=== PATIENT | female | born 1990 | race Caucasian/White ===

== ENCOUNTER → 2018-05-14 | Outpatient (CLI) | payer OTHER ==
[2018-05-14 15:07] LABS: HCT 37.3 % (34.0-46.0); HGB 12.3 gm/dL (11.4-16.0); MCHC 32.9 g/dL (31.0-37.0); MCV 85.1 fL (80.0-100.0); Platelet Count 270 k/uL (150-450); RBC 4.38 m/uL (3.80-5.40); RDW 13.6 % (11.5-15.5); WBC 13.8 k/uL (3.8-10.6)
[2018-05-14 18:54] LABS: T3, Uptake 26 % (23-37)
[2018-05-14 18:59] LABS: T4, Free (Free Thyroxine) 1.2 ng/dL (0.80-1.80)
[2018-05-14 21:47] LABS: HIV 1 AB Non-Reactive (Non-Reactive); HIV AB P24 Non-Reactive (Non-Reactive); HIV P24 AG Non-Reactive (Non-Reactive)
== END | disposition home or self-care (01) ==
LOC: LABWHC1 14:32
PROVIDERS: ATTEND Obstetrics & Gynecology
DX: Z34.81 Encounter for supervision of other normal pregnancy, first trimester (principal); Z3A.00 Weeks of gestation of pregnancy not specified
CPT/HCPCS: 36415; 82565; 82947; 84439; 84443; 84479; 85027; 86592; 86762; 86850; 86900; 86901; 87340; 87390

== ENCOUNTER 2018-05-21 01:01 | Emergency (ER) | payer OTHER ==
[2018-05-21 01:05] VITALS: TEMP 97.8
--- NOTE | 2018-05-21 01:36 | ED ---
Female Urogenital HPI - General Chief complaint: Vaginal Bleeding Stated complaint: bleeding,8 wks preg Time Seen by Provider: 05/21/18 01:11 Source: patient, RN notes reviewed, old records reviewed Mode of arrival: ambulatory Limitations: no limitations - History of Present Illness Initial comments: Patient is a 28-year-old, female. She was reportedly 8 weeks . She presents emergency department today complaining of vaginal bleeding starting at 11:30 this evening. She reports that she is went through 1. Pad. Patient states that she lives of right-sided abdominal cramping. She has not had any ultrasound for this yet. Her E[employer]IC MOTOR[employer] is Dr. Mobley. - Related Data Home Medications Medication Instructions Recorded Confirmed ALPRAZolam [Xanax] 0.5 mg PO TID PRN 08/18/15 08/18/15 Venlafaxine HCl [Effexor XR] 75 mg PO DAILY 08/18/15 08/18/15 Previous Rx's Medication Instructions Recorded Ibuprofen [Motrin] 600 mg PO Q6HR PRN #20 tab 08/18/15 Orphenadrine [Norflex] 100 mg PO Q12H #10 tablet.er 08/18/15 Allergies Allergy/AdvReac Type Severity Reaction Status Date / Time Iodinated Contrast- Oral and Allergy Anaphylaxis Verified 08/18/15 11:16 IV Dye [Iodinated Contrast Media - IV Dye] Review of Systems ROS Statement: Those systems with pertinent positive or pertinent negative responses have been documented in the HPI. ROS Other: All systems not noted in ROS Statement are negative. Past Medical History Past Medical History: Fibromyalgia, Skin Disorder Additional Past Medical History / Comment(s): MENINGITIS INFANT, BOILS ON SKIN, CHEST PAIN AND SOB WITH ANXIETY, INTERMITTENT ABD PAIN, VARICOSE VEINS History of Any Multi-Drug Resistant Organisms: None Reported Additional Past Surgical History / Comment(s): EGD & COLONOSCOPY Past Anesthesia/Blood Transfusion Reactions: No Reported Reaction Past Psychological History: Anxiety, Depression, PTSD Smoking Status: Current every day smoker Past Alcohol Use History: Occasional Past Drug Use History: None Reported General Exam - General Exam Comments Initial Comments: 28-year-old female. Alert and oriented. Patient appears in no distress. Limitations: no limitations General appearance: alert, in no apparent distress Head exam: Present: atraumatic, normocephalic, normal inspection Eye exam: Present: normal appearance, PERRL, EOMI. Absent: scleral icterus, conjunctival injection, periorbital swelling ENT exam: Present: normal exam, mucous membranes moist Neck exam: Present: normal inspection. Absent: tenderness, meningismus, lymphadenopathy Respiratory exam: Present: normal lung sounds bilaterally. Absent: respiratory distress, wheezes, rales, rhonchi, stridor Cardiovascular Exam: Present: regular rate, normal rhythm, normal heart sounds. Absent: systolic murmur, diastolic murmur, rubs, gallop, clicks GI/Abdominal exam: Present: soft, normal bowel sounds. Absent: distended, tenderness, guarding, rebound, rigid External exam: Present: normal external exam Speculum exam: Present: normal speculum exam By manual exam: Present: cervical motion tenderness, adnexal tenderness (Right adnexal tenderness). Absent: normal by manual exam Extremities exam: Present: normal inspection, full ROM, normal capillary refill. Absent: tenderness, pedal edema, joint swelling, calf tenderness Back exam: Present: normal inspection Neurological exam: Present: alert, oriented X3, CN II-XII intact Psychiatric exam: Present: normal affect, normal mood Skin exam: Present: warm, dry, intact, normal color. Absent: rash Course Vital Signs 05/21/18 05/21/18 01:03 02:42 Temperature 97.8 F Pulse Rate 70 59 L Respiratory 16 18 Rate Blood Pressure 121/68 105/59 O2 Sat by Pulse 98 100 Oximetry Medical Decision Making - Medical Decision Making Patient is a 28-year-old female, currently 8 weeks . She presents emergency arm today with concerns for vaginal bleeding and pelvic pain and cramping. She has no fever. She did have some right-sided adnexal tenderness on exam. Pelvic exam showed a small amount of scant bleeding. No clots. She is Rh-. Patient will receive RhoGAM. Vaginal swab did test positive for Trichomonas. Patient was informed of these results and discussed that I treat her for chlamydia E Trichomonas. Patient reports that she hurt he is aware that she has Trichomonas. Patient is wanting to wait to be treated by her [employer]OR[employer] when she is 13 weeks . I did discuss that the Trichomonas infection could be the onset of her pain. . She refused Flagyl and the antibiotic treatment. Patient reports that she wants to be treated at 13 weeks when her can both be treated at the same time. I discussed the Patient follow-up with Dr. Mobley. Patient agrees to treatment plan will comply. Discharged after RhoGAM. - Lab Data Result diagrams: 05/21/18 01:40 05/21/18 01:40 Lab Results 05/21/18 05/21/18 05/21/18 Range/Units 01:40 01:40 01:40 WBC 10.6 (3.8-10.6) k/uL RBC 4.49 (3.80-5.40) m/uL Hgb 12.6 (11.4-16.0) gm/dL Hct 37.9 (34.0-46.0) % MCV 84.3 (80.0-100.0) fL MCH 28.1 (25.0-35.0) pg MCHC 33.3 (31.0-37.0) g/dL RDW 13.7 (11.5-15.5) % Plt Count 252 (150-450) k/uL Neutrophils % 72 % Lymphocytes % 21 % Monocytes % 4 % Eosinophils % 2 % Basophils % 0 % Neutrophils # 7.6 (1.3-7.7) k/uL Lymphocytes # 2.2 (1.0-4.8) k/uL Monocytes # 0.4 (0-1.0) k/uL Eosinophils # 0.2 (0-0.7) k/uL Basophils # 0.0 (0-0.2) k/uL PT (9.0-12.0) sec INR (<1.2) APTT (22.0-30.0) sec Sodium 137 (137-145) mmol/L Potassium 4.0 (3.5-5.1) mmol/L Chloride 107 (98-107) mmol/L Carbon Dioxide 23 (22-30) mmol/L Anion Gap 7 mmol/L BUN 8 (7-17) mg/dL Creatinine 0.50 L (0.52-1.04) mg/dL Est GFR (CKD-EPI)AfAm >90 (>60 ml/min/1.73 sqM) Est GFR (CKD-EPI)NonAf >90 (>60 ml/min/1.73 sqM) Glucose 92 (74-99) mg/dL Calcium 9.0 (8.4-10.2) mg/dL Total Bilirubin 0.2 (0.2-1.3) mg/dL AST 22 (14-36) U/L ALT 40 (9-52) U/L Alkaline Phosphatase 53 (38-126) U/L Total Protein 6.5 (6.3-8.2) g/dL Albumin 3.5 (3.5-5.0) g/dL HCG, Quant 09554.5 mIU/mL Urine Color Urine Appearance (Clear) Urine pH (5.0-8.0) Ur Specific L[place] (1.001-1.035) Urine Protein (Negative) Urine Glucose (UA) (Negative) Urine Ketones (Negative) Urine Blood (Negative) Urine Nitrite (Negative) Urine Bilirubin (Negative) Urine Urobilinogen (<2.0) mg/dL Ur Leukocyte Esterase (Negative) Urine RBC (0-5) /hpf Urine WBC (0-5) /hpf Ur Squamous Epith Cells (0-4) /hpf Urine HCG, Qual (Not Detectd) Trichomonas Ag (Rapid) (Negative) Blood Type A Negative Blood Type Recheck No Antibody Screen NEGATIVE 05/21/18 05/21/18 05/21/18 Range/Units 01:40 01:40 01:40 WBC (3.8-10.6) k/uL RBC (3.80-5.40) m/uL Hgb (11.4-16.0) gm/dL Hct (34.0-46.0) % MCV (80.0-100.0) fL MCH (25.0-35.0) pg MCHC (31.0-37.0) g/dL RDW (11.5-15.5) % Plt Count (150-450) k/uL Neutrophils % % Lymphocytes % % Monocytes % % Eosinophils % % Basophils % % Neutrophils # (1.3-7.7) k/uL Lymphocytes # (1.0-4.8) k/uL Monocytes # (0-1.0) k/uL Eosinophils # (0-0.7) k/uL Basophils # (0-0.2) k/uL PT 10.7 (9.0-12.0) sec INR 1.0 (<1.2) APTT 25.3 (22.0-30.0) sec Sodium (137-145) mmol/L Potassium (3.5-5.1) mmol/L Chloride (98-107) mmol/L Carbon Dioxide (22-30) mmol/L Anion Gap mmol/L BUN (7-17) mg/dL Creatinine (0.52-1.04) mg/dL Est GFR (CKD-EPI)AfAm (>60 ml/min/1.73 sqM) Est GFR (CKD-EPI)NonAf (>60 ml/min/1.73 sqM) Glucose (74-99) mg/dL Calcium (8.4-10.2) mg/dL Total Bilirubin (0.2-1.3) mg/dL AST (14-36) U/L ALT (9-52) U/L Alkaline Phosphatase (38-126) U/L Total Protein (6.3-8.2) g/dL Albumin (3.5-5.0) g/dL HCG, Quant mIU/mL Urine Color Light Yellow Urine Appearance Clear (Clear) Urine pH 6.5 (5.0-8.0) Ur Specific [place] 1.003 (1.001-1.035) Urine Protein Negative (Negative) Urine Glucose (UA) Negative (Negative) Urine Ketones Negative (Negative) Urine Blood Small H (Negative) Urine Nitrite Negative (Negative) Urine Bilirubin Negative (Negative) Urine Urobilinogen <2.0 (<2.0) mg/dL Ur Leukocyte Esterase Negative (Negative) Urine RBC 1 (0-5) /hpf Urine WBC 1 (0-5) /hpf Ur Squamous Epith Cells 3 (0-4) /hpf Urine HCG, Qual Detected (Not Detectd) Trichomonas Ag (Rapid) (Negative) Blood Type Blood Type Recheck Antibody Screen 05/21/18 Range/Units 02:10 WBC (3.8-10.6) k/uL RBC (3.80-5.40) m/uL Hgb (11.4-16.0) gm/dL Hct (34.0-46.0) % MCV (80.0-100.0) fL MCH (25.0-35.0) pg MCHC (31.0-37.0) g/dL RDW (11.5-15.5) % Plt Count (150-450) k/uL Neutrophils % % Lymphocytes % % Monocytes % % Eosinophils % % Basophils % % Neutrophils # (1.3-7.7) k/uL Lymphocytes # (1.0-4.8) k/uL Monocytes # (0-1.0) k/uL Eosinophils # (0-0.7) k/uL Basophils # (0-0.2) k/uL PT (9.0-12.0) sec INR (<1.2) APTT (22.0-30.0) sec Sodium (137-145) mmol/L Potassium (3.5-5.1) mmol/L Chloride (98-107) mmol/L Carbon Dioxide (22-30) mmol/L Anion Gap mmol/L BUN (7-17) mg/dL Creatinine (0.52-1.04) mg/dL Est GFR (CKD-EPI)AfAm (>60 ml/min/1.73 sqM) Est GFR (CKD-EPI)NonAf (>60 ml/min/1.73 sqM) Glucose (74-99) mg/dL Calcium (8.4-10.2) mg/dL Total Bilirubin (0.2-1.3) mg/dL AST (14-36) U/L ALT (9-52) U/L Alkaline Phosphatase (38-126) U/L Total Protein (6.3-8.2) g/dL Albumin (3.5-5.0) g/dL HCG, Quant mIU/mL Urine Color Urine Appearance (Clear) Urine pH (5.0-8.0) Ur Specific [place] (1.001-1.035) Urine Protein (Negative) Urine Glucose (UA) (Negative) Urine Ketones (Negative) Urine Blood (Negative) Urine Nitrite (Negative) Urine Bilirubin (Negative) Urine Urobilinogen (<2.0) mg/dL Ur Leukocyte Esterase (Negative) Urine RBC (0-5) /hpf Urine WBC (0-5) /hpf Ur Squamous Epith Cells (0-4) /hpf Urine HCG, Qual (Not Detectd) Trichomonas Ag (Rapid) Positive H (Negative) Blood Type Blood Type Recheck Antibody Screen - Radiology Data Radiology results: report reviewed Ultrasound shows viable IUP measuring 8 weeks and 0 days. Heart rate of 1 71 bpm. kidney process is noted. Disposition Clinical Impression: Trichomonas infection, 8 weeks gestation of , Threatened miscarriage Disposition: HOME SELF-CARE Condition: Good Instructions: Trichomoniasis (ED), Threatened Miscarriage (ED) Additional Instructions: Patient advised of prompt follow-up with primary care physician and [employer]. Return to the emergency department if any alarming signs or symptoms occur. Is patient prescribed a controlled substance at d/c from ED?: No Referrals: Gladis Vivas MD [Primary Care Provider] - 1-2 days Royer Anders DO [Doctor of Osteopathic Medicine] - 1-2 days Time of Disposition: 03:39
[2018-05-21 01:59] LABS: Basophils % (A) 0 %; Eosinophils # (A) 0.2 k/uL (0-0.7); Eosinophils % (A) 2 %; HCT 37.9 % (34.0-46.0); HGB 12.6 gm/dL (11.4-16.0); Lymphocytes # (A) 2.2 k/uL (1.0-4.8); Lymphocytes % (A) 21 %; MCH 28.1 pg (25.0-35.0); MCHC 33.3 g/dL (31.0-37.0); MCV 84.3 fL (80.0-100.0); Mean Platelet Volume 6.8; Monocytes # (A) 0.4 k/uL (0-1.0); Monocytes % (A) 4 %; Neutrophils # (A) 7.6 k/uL (1.3-7.7); Neutrophils % (A) 72 %; Platelet Count 252 k/uL (150-450); RBC 4.49 m/uL (3.80-5.40); RDW 13.7 % (11.5-15.5); WBC 10.6 k/uL (3.8-10.6)
[2018-05-21 02:01] LABS: Appearance,Urine Clear (Clear); Bilirubin,Urine Negative (Negative); Blood,Urine Small (Negative); Color,Urine Light Yellow; Glucose,Urine (UA) Negative (Negative); Ketones,Urine Negative (Negative); Leukocyte Esterase,Urine Negative (Negative); Nitrite,Urine Negative (Negative); PH, Urine 6.5 (5.0-8.0); Protein,Urine Negative (Negative); RBC,Urine 1 /hpf (0-5); Specific Gravity,Urine 1.003 (1.001-1.035); Squamous Epithelial Cell,Urine 3 /hpf (0-4); Urobilinogen,Urine <2.0 mg/dL (<2.0)
[2018-05-21 02:09] LABS: ALT 40 U/L (9-52); AST 22 U/L (14-36); Albumin 3.5 g/dL (3.5-5.0); Alkaline Phosphatase 53 U/L (38-126); Anion Gap 7 mmol/L; Blood Urea Nitrogen 8 mg/dL (7-17); Carbon Dioxide 23 mmol/L (22-30); Chloride 107 mmol/L (98-107); Glucose 92 mg/dL (74-99); Sodium 137 mmol/L (137-145); Total Bilirubin 0.2 mg/dL (0.2-1.3); Total Protein 6.5 g/dL (6.3-8.2)
[2018-05-21 02:11] LABS: Partial Thromboplastin Time 25.3 sec (22.0-30.0); Prothrombin Time 10.7 sec (9.0-12.0)
--- NOTE | 2018-05-21 02:21 | US ---
EXAMINATION TYPE: Transabdominal DATE OF EXAM: 09/01/17 COMPARISON: NONE CLINICAL HISTORY: pain. Bleeding EXAM PERFORMED: Transabdominal (TA) EXAM MEASUREMENTS: GESTATIONAL AGE / DATING Physician Established: (8 weeks/2 days) EDC: 12/29/2018 Dates by LMP: (8 weeks/2 days) EDC: 12/29/2018 Dates by First Scan: No previous this is first scan Dates by Current Scan for: (8 weeks/0 days) EDC: 12/31/2018 MATERNAL ANATOMY Uterus: 9.3 x 5.0 x 5.8 cm Right Ovary: 3.4 x 2.4 x 2.0 cm Post CDS / Adnexa: wnl Presence of free fluid: no Presence of corpus luteal cyst: yes Presence of subchorionic bleed: no GESTATION / SURVEY CRL: 1.67cm (8 weeks/0 days) Yolk Sac (normal less than 6mm): 2 Heart Rate: 171 bpm Rhythm: Normal IUP: Viable IUP Beta HcG (if available): Not available at this time Viable IUP 8w 0d hr 171 bpm IMPRESSION: No complicating process seen.
[2018-05-21] MEDS ORDERED: Rhogam IMMUNE GLOBULIN 1,500 UNIT/1 ML IM ONE (02:23)
[2018-05-21 02:43] VITALS: BP 105/59; PULSE 59; RESP 18
[2018-05-21 02:58] LABS: HCG,Quantitative Serum 59443.5 mIU/mL
[2018-05-21] MEDS ORDERED: cefTRIAXone 250 MG VIAL IM STA (03:11)
[2018-05-21] MEDS ORDERED: metroNIDAZOLE 500 MG TAB PO STA (03:11)
[2018-05-21] MEDS ORDERED: AZITHROMYCIN 500 MG TAB PO STA (03:11)
[2018-05-24 11:01] LABS: Chlamydia trachomatis rRNA Not detected (Not detected); Neisseria gonorrhoeae rRNA Not detected (Not detected)
== END 2018-05-21 04:00 | disposition home or self-care (01) ==
LOC: EC 01:01
DX: O20.0 Threatened abortion (principal); O98.311 Other infections with a predominantly sexual mode of transmission complicating pregnancy, first trimester; O99.341 Other mental disorders complicating pregnancy, first trimester; F32.9 Major depressive disorder, single episode, unspecified; F41.9 Anxiety disorder, unspecified; F43.10 Post-traumatic stress disorder, unspecified; O99.331 Smoking (tobacco) complicating pregnancy, first trimester; F17.200 Nicotine dependence, unspecified, uncomplicated; Z3A.08 8 weeks gestation of pregnancy; Z53.8 Procedure and treatment not carried out for other reasons; Z79.899 Other long term (current) drug therapy; Z91.041 Radiographic dye allergy status
CPT/HCPCS: 36415; 86900; 86901; 80053; 87591; 87491; 85025; 85610; 85730; 86850; 81001; 81025; 84702; 87808; 87070; 87205; 76801; 99284; 96372; J2791

== ENCOUNTER → 2018-05-27 | Outpatient (CLI) | payer OTHER ==
--- NOTE | 2018-05-27 13:34 | US ---
EXAMINATION TYPE: Transabdominal DATE OF EXAM: 09/01/17 COMPARISON: 05/18 CLINICAL HISTORY: Z36 Confirm dates. EXAM PERFORMED: Transvaginal (TV) and Transabdominal (TA) EXAM MEASUREMENTS: GESTATIONAL AGE / DATING Physician Established: not established Dates by LMP: (9 weeks/1 days) EDC: 12/29/2018 Dates by First Scan: (8 weeks/6 days) EDC: 12/31/2018 Dates by Current Scan for: (8 weeks/3 days) EDC: 01/03/2019 MATERNAL ANATOMY Uterus: 8.6 x 4.6 x 5.6 Right Ovary: 3.0 x 2.1 x 2.8 cm Left Ovary: 2.2x2.4x1.5 Post CDS / Adnexa: wnl Presence of free fluid: no Presence of corpus luteal cyst: rt cyst 1.9 x 2.0 x 1.9 cm Presence of subchorionic bleed: no GESTATION / SURVEY CRL: 2.2 (8 weeks/3 days) MSD: 3.3 (8 weeks/0 days) Yolk Sac (normal less than 6mm): 0.5 Heart Rate: 142 bpm Rhythm: Normal IUP: Viable IUP Date of LMP: 03/24/2018 Beta HcG (if available): Not available at this time IMPRESSION: Single viable intrauterine as noted above.
== END | disposition home or self-care (01) ==
LOC: RADUSWWP 12:29
PROVIDERS: ATTEND Obstetrics & Gynecology
DX: Z36.89 Encounter for other specified antenatal screening (principal)
CPT/HCPCS: 76801; 76817; 84702

== ENCOUNTER 2018-07-27 03:02 | Emergency (ER) | payer OTHER ==
[2018-07-27] MEDS ORDERED: SODIUM CHLORIDE 0.9% 1,000 ML IV ONE (03:36)
[2018-07-27] MEDS ORDERED: ACETAMINOPHEN TAB 325 MG TAB PO STA (03:36)
--- NOTE | 2018-07-27 03:54 | ED ---
Abdominal Pain HPI - General Chief Complaint: Abdominal Pain Stated Complaint: 17 Wks Preg Back,Abd Pain Time Seen by Provider: 07/27/18 03:35 Source: patient Mode of arrival: ambulatory Limitations: no limitations - History of Present Illness Initial Comments: Sheela is a female currently 17 weeks gestation single intrauterine who presents to the emergency department today for evaluation of low back pain radiating to her pelvis. Patient reports that the discomfort began yesterday she describes it as a bilateral cramping that radiates from her back around into her pelvis. Pain is not associated with any nausea, vomiting, appetite change, change in bowel or bladder habits any hematuria dysuria or urinary frequency. She's not had any vaginal bleeding or discharge. She has no concern for sexual transmitted infections. She reports she had no pain similar to this during her previous . She denies any recent slips falls or injury. She states that she called her OB office and was advised that she could have a kidney stone or bladder infection and should be evaluated in the emergency department. She reports she can still feel her fetus moving. - Related Data Home Medications Medication Instructions Recorded Confirmed ALPRAZolam [Xanax] 0.5 mg PO TID PRN 08/18/15 08/18/15 Venlafaxine HCl [Effexor XR] 75 mg PO DAILY 08/18/15 08/18/15 Previous Rx's Medication Instructions Recorded Ibuprofen [Motrin] 600 mg PO Q6HR PRN #20 tab 08/18/15 Orphenadrine [Norflex] 100 mg PO Q12H #10 tablet.er 08/18/15 Allergies Allergy/AdvReac Type Severity Reaction Status Date / Time Iodinated Contrast- Oral and Allergy Anaphylaxis Verified 07/27/18 03:21 IV Dye [Iodinated Contrast Media - IV Dye] Review of Systems ROS Statement: Those systems with pertinent positive or pertinent negative responses have been documented in the HPI. ROS Other: All systems not noted in ROS Statement are negative. Past Medical History Past Medical History: Fibromyalgia, Skin Disorder Additional Past Medical History / Comment(s): MENINGITIS INFANT, BOILS ON SKIN, CHEST PAIN AND SOB WITH ANXIETY, INTERMITTENT ABD PAIN, VARICOSE VEINS History of Any Multi-Drug Resistant Organisms: None Reported Additional Past Surgical History / Comment(s): EGD & COLONOSCOPY Past Anesthesia/Blood Transfusion Reactions: No Reported Reaction Past Psychological History: Anxiety, Depression, PTSD Smoking Status: Current every day smoker Past Alcohol Use History: Occasional Past Drug Use History: None Reported General Exam - General Exam Comments Initial Comments: Physical Exam GENERAL: Patient is well-developed and well-nourished. Patient is nontoxic and well- hydrated and is in no distress. HENT: Normocephalic, Atraumatic. EYES: PERRL, EOMI PULMONARY: Unlabored respirations. No audible rales rhonchi or wheezing was noted. CARDIOVASCULAR: There is a regular rate and rhythm without any murmurs gallops or rubs. ABDOMEN: Soft and nontender with normal bowel sounds. SKIN: Scars on pannus consistent with frequent boils : Deferred NEUROLOGIC: Patient is alert and oriented x3. Moving all extremities spontaneously MUSCULOSKELETAL: Normal extremities with adequate strength and full range of motion. No lower extremity swelling or edema. No calf tenderness. PSYCHIATRIC: Normal psychiatric evaluation. Limitations: no limitations Limitations: no limitations Course Vital Signs 07/27/18 03:16 Temperature 98.3 F Pulse Rate 93 Respiratory 18 Rate Blood Pressure 109/66 O2 Sat by Pulse 98 Oximetry Medical Decision Making - Medical Decision Making Patient was seen and evaluated history is obtained from the patient Labor and delivery nurses at bedside heart tones with rates ranging from 145-153 Bedside ultrasound reveals an active fetus again confirms heart rate of 145-153 Labs with no significant abnormalities Urinanalysis with no evidence of hematuria or urinary tract infection, CBC BMP within normal limits Patient was able to sleep comfortably for a short period time after Tylenol and fluids however after reevaluation she reports she is having some cramping patient care was discussed with OB on-call Dr. Emery who agrees with plan for discharge and outpatient follow-up with OB. This was discussed with patient who is agreeable. Patient will be given a work note for today. Patient advised to call her OB office for scheduling follow-up. All questions pertaining care were answered the best my ability return parameters were discussed the patient was discharged home in stable condition. - Lab Data Result diagrams: 07/27/18 04:37 07/27/18 04:37 Lab Results 07/27/18 07/27/18 07/27/18 Range/Units 04:37 04:37 04:37 WBC 14.7 H (3.8-10.6) k/uL RBC 4.20 (3.80-5.40) m/uL Hgb 12.1 (11.4-16.0) gm/dL Hct 35.9 (34.0-46.0) % MCV 85.5 (80.0-100.0) fL MCH 28.7 (25.0-35.0) pg MCHC 33.6 (31.0-37.0) g/dL RDW 13.9 (11.5-15.5) % Plt Count 248 (150-450) k/uL Neutrophils % 75 % Lymphocytes % 17 % Monocytes % 4 % Eosinophils % 3 % Basophils % 0 % Neutrophils # 11.1 H (1.3-7.7) k/uL Lymphocytes # 2.6 (1.0-4.8) k/uL Monocytes # 0.5 (0-1.0) k/uL Eosinophils # 0.4 (0-0.7) k/uL Basophils # 0.0 (0-0.2) k/uL Sodium 135 L (137-145) mmol/L Potassium 3.8 (3.5-5.1) mmol/L Chloride 108 H (98-107) mmol/L Carbon Dioxide 22 (22-30) mmol/L Anion Gap 5 mmol/L BUN 7 (7-17) mg/dL Creatinine 0.38 L (0.52-1.04) mg/dL Est GFR (CKD-EPI)AfAm >90 (>60 ml/min/1.73 sqM) Est GFR (CKD-EPI)NonAf >90 (>60 ml/min/1.73 sqM) Glucose 81 (74-99) mg/dL Calcium 8.5 (8.4-10.2) mg/dL Total Bilirubin 0.2 (0.2-1.3) mg/dL AST 23 (14-36) U/L ALT 38 (9-52) U/L Alkaline Phosphatase 58 (38-126) U/L Total Protein 5.8 L (6.3-8.2) g/dL Albumin 3.0 L (3.5-5.0) g/dL Urine Color Yellow Urine Appearance Clear (Clear) Urine pH 5.5 (5.0-8.0) Ur Specific [place] 1.022 (1.001-1.035) Urine Protein Trace H (Negative) Urine Glucose (UA) Negative (Negative) Urine Ketones Negative (Negative) Urine Blood Negative (Negative) Urine Nitrite Negative (Negative) Urine Bilirubin Negative (Negative) Urine Urobilinogen 2.0 (<2.0) mg/dL Ur Leukocyte Esterase Negative (Negative) Disposition Clinical Impression: Low back pain, Abdominal pain Disposition: HOME SELF-CARE Instructions (If sedation given, give patient instructions): Abdominal Pain in (ED) Is patient prescribed a controlled substance at d/c from ED?: No Referrals: Gladis Vivas MD [Primary Care Provider] - 1-2 days
[2018-07-27 04:48] LABS: Appearance,Urine Clear (Clear); Basophils % (A) 0 %; Bilirubin,Urine Negative (Negative); Blood,Urine Negative (Negative); Color,Urine Yellow; Eosinophils # (A) 0.4 k/uL (0-0.7); Eosinophils % (A) 3 %; Glucose,Urine (UA) Negative (Negative); HCT 35.9 % (34.0-46.0); HGB 12.1 gm/dL (11.4-16.0); Ketones,Urine Negative (Negative); Leukocyte Esterase,Urine Negative (Negative); Lymphocytes # (A) 2.6 k/uL (1.0-4.8); Lymphocytes % (A) 17 %; MCH 28.7 pg (25.0-35.0); MCHC 33.6 g/dL (31.0-37.0); MCV 85.5 fL (80.0-100.0); Mean Platelet Volume 6.9; Monocytes # (A) 0.5 k/uL (0-1.0); Monocytes % (A) 4 %; Neutrophils # (A) 11.1 k/uL (1.3-7.7); Neutrophils % (A) 75 %; Nitrite,Urine Negative (Negative); PH, Urine 5.5 (5.0-8.0); Platelet Count 248 k/uL (150-450); Protein,Urine Trace (Negative); RDW 13.9 % (11.5-15.5); Specific Gravity,Urine 1.022 (1.001-1.035); WBC 14.7 k/uL (3.8-10.6)
[2018-07-27 04:57] LABS: ALT 38 U/L (9-52); AST 23 U/L (14-36); Alkaline Phosphatase 58 U/L (38-126); Anion Gap 5 mmol/L; Blood Urea Nitrogen 7 mg/dL (7-17); Calcium 8.5 mg/dL (8.4-10.2); Carbon Dioxide 22 mmol/L (22-30); Chloride 108 mmol/L (98-107); Glucose 81 mg/dL (74-99); Potassium 3.8 mmol/L (3.5-5.1); Sodium 135 mmol/L (137-145); Total Bilirubin 0.2 mg/dL (0.2-1.3); Total Protein 5.8 g/dL (6.3-8.2)
[2018-07-27 07:36] VITALS: BP 121/68; PULSE 88; RESP 16; TEMP 98
== END 2018-07-27 07:36 | disposition home or self-care (01) ==
LOC: EC 03:02
DX: O99.89 Other specified diseases and conditions complicating pregnancy, childbirth and the puerperium (principal); R10.9 Unspecified abdominal pain; M54.5 Low back pain; O99.341 Other mental disorders complicating pregnancy, first trimester; F41.9 Anxiety disorder, unspecified; F32.9 Major depressive disorder, single episode, unspecified; F43.10 Post-traumatic stress disorder, unspecified; O99.332 Smoking (tobacco) complicating pregnancy, second trimester; F17.200 Nicotine dependence, unspecified, uncomplicated; Z79.899 Other long term (current) drug therapy; Z91.041 Radiographic dye allergy status; Z3A.17 17 weeks gestation of pregnancy
CPT/HCPCS: 36415; 80053; 81003; 85025; 96360; 96361; 99284

== ENCOUNTER 2018-08-11 02:20 | Outpatient (CLI) | payer OTHER ==
[2018-08-11 03:08] VITALS: BP 112/58; PULSE 83; RESP 18; TEMP 96.4
== END 2018-08-11 02:47 | disposition home or self-care (01) ==
LOC: FBPOP 02:20
PROVIDERS: ATTEND Obstetrics & Gynecology
DX: O46.92 Antepartum hemorrhage, unspecified, second trimester (principal); Z3A.20 20 weeks gestation of pregnancy
CPT/HCPCS: 99213

== ENCOUNTER 2018-11-01 08:54 | Outpatient (CLI) | payer OTHER ==
[2018-11-01 09:26] VITALS: BP 118/56; PULSE 103; RESP 18; TEMP 97.7
--- NOTE | 2018-11-06 11:55 | P.MSEPDOC ---
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 rescreen at next visit Review of Systems - Review of Systems Constitutional: No problems Breast: No problems ENT: No problems Cardiovascular: No problems Respiratory: No problems Gastrointestinal: No problems Genitourinary: No problems Musculoskeletal: No problems Neurological: No problems Skin: Rash Comment: skin with "tunneling acne" per pt on her abdomen, old scarring noted. Vital Signs - Temperature Temperature: 97.7 F Temperature Source: Temporal Artery Scan - Pulse Right Sitting Brachial Pulse Rate: 103 Pulse Assessment Method: Automatic Cuff - Respirations Respiratory Rate: 18 Oxygen Delivery Method: Room Air O2 Sat by Pulse Oximetry: 98 - Blood Pressure Right Arm Sitting Blood Pressure: 118/56 Blood Pressure Mean: 76 Blood Pressure Source: Automatic Cuff Medical Screen Scoring (Pre) - Cervical Exam Dilation: Exam Deferred Effacement: Exam Deferred Membranes: Intact - Uterine Contractions Frequency: N/A Duration: N/A Intensity: N/A - Maternal Vital Signs Maternal Temperature: N/A Maternal Blood Pressure: N/A Signs of Preeclampsia: N/A Maternal Respirations: N/A - Total Score - Baby A Total Score - Baby A: 0 - Level of Risk - Baby A Level of Risk - Baby A: Low (0-5) - Pain Assessment Pain Location and Character: Abdomen Pain Scale Used: Numeric (1 - 10) Pain Intensity: 4 Pain Management Goal: 3 Pain Frequency: Intermittent Pain Behavior: None Exhibited Physician Notification (Pre) - Notification Comment Comment: plan for FFN collection and sterile vaginal exam, will report to Dr Anders Medical Screen Scoring (Post) - Cervical Exam Dilation: 0 cm = 0 - Uterine Contractions Frequency: N/A Duration: N/A Intensity: N/A - Maternal Vital Signs Maternal Temperature: N/A Maternal Blood Pressure: N/A Signs of Preeclampsia: N/A Maternal Respirations: N/A - Pain Assessment Pain Scale Used: Numeric (1 - 10) Pain Intensity: 0 Pain Management Goal: 3 - Total Score Total Score - Baby A: 0 - Post Treatment Level of Risk Post Treatment Level of Risk - Baby A: Low (0-5) Physician Notification (Post) - Physician Notified Physician Notified Date: 11/01/18 Physician Notified Time: 10:15 Physician/Practitioner Notified:: Dr Mccloud Spoke With: Dr Emery New Order Received: Yes - Notification Comment Comment: report to Dr Emery, in OR with Dr Anders. ok home. Follow up as scheduled. Disposition - Disposition OB Disposition: Discharge to home Discharge Date: 11/01/18 Discharge Time: 10:19 I agree with the RN Medical Screening Exam: Yes Risk & Benefit of care provided described in d/c instruction: Yes Diagnosis: FALSE LABOR AT OR AFTER 37 COMPLETED WEEKS OF GESTATION
== END 2018-11-01 10:20 | disposition home or self-care (01) ==
LOC: FBPOP 08:54
PROVIDERS: ATTEND Obstetrics & Gynecology
DX: O47.03 False labor before 37 completed weeks of gestation, third trimester (principal); O99.333 Smoking (tobacco) complicating pregnancy, third trimester; Z3A.31 31 weeks gestation of pregnancy
CPT/HCPCS: 59025; G0463; 99213

== ENCOUNTER 2018-12-11 04:49 | Outpatient (CLI) | payer OTHER ==
[2018-12-11 05:55] VITALS: BP 113/64; PULSE 90; RESP 18; TEMP 96.5
--- NOTE | 2018-12-14 12:38 | P.MSEPDOC ---
Presenting Problems - Arrival Data Date of Arrival on Unit: 12/11/18 Time of Arrival on Unit: 04:49 Mode of Transport: Ambulatory - Complaint OB-Reason for Admission/Chief Complaint: Rule Out SROM Comment: pt states possible SROM at 0300, clear fluid occasionally still leaking Medical History - Information : 2 Para: 1 Term: 1 : 0 Abortions: Spontaneous or Elective: 0 Number of Living Children: 1 - Gestational Age Gestational Age by NATALIO (wks/days): 37 Weeks and 3 Days - History Complications: No Care Comment: trich-currently taking flagyl Review of Systems - Review of Systems Constitutional: No problems Breast: No problems ENT: No problems Cardiovascular: No problems Respiratory: No problems Gastrointestinal: No problems Genitourinary: No problems Musculoskeletal: No problems Neurological: No problems Skin: No problems Vital Signs - Temperature Temperature: 96.5 F Temperature Source: Temporal Artery Scan - Pulse Right Brachial Pulse Rate: 90 Pulse Assessment Method: Automatic Cuff - Respirations Respiratory Rate: 18 Oxygen Delivery Method: Room Air O2 Sat by Pulse Oximetry: 98 - Blood Pressure Right Arm Blood Pressure: 113/64 Blood Pressure Mean: 80 Blood Pressure Source: Automatic Cuff Medical Screen Scoring (Pre) - Cervical Exam Dilation: 1-3 cm = 1 Effacement: More than 50% = 2 Membranes: Intact - Uterine Contractions Frequency: N/A Duration: N/A Intensity: N/A - Maternal Vital Signs Maternal Temperature: N/A Maternal Blood Pressure: N/A Signs of Preeclampsia: N/A - Maternal Trauma Maternal Trauma: N/A - Assessment - Baby A Baseline FHR: 130 Heart Rate - NICHD Category: Category I (Normal) = 0 NST: Reactive Position: N/A Station: N/A - Total Score - Baby A Total Score - Baby A: 3 - Total Score - Baby B Total Score - Baby B: 3 - Total Score - Baby C Total Score - Baby C: 3 - Level of Risk - Baby A Level of Risk - Baby A: Low (0-5) - Level of Risk - Baby B Level of Risk - Baby B: Low (0-5) - Level of Risk - Baby C Level of Risk - Baby C: Low (0-5) Physician Notification (Pre) - Physician Notified Physician Notified Date: 12/11/18 Physician Notified Time: 05:30 Physician/Practitioner Notifed:: Dr. Emery Spoke With: Dr. Emery New Order Received: Yes - Notification Comment Comment: discharge pt home, follow up on Thursday at scheduled appt with Dr. Anders Disposition - Disposition OB Disposition: Triage, Discharge to home, Written follow up instructions reviewed Discharge Date: 12/11/18 Discharge Time: 05:45 I agree with the RN Medical Screening Exam: Yes Risk & Benefit of care provided described in d/c instruction: Yes Diagnosis: FALSE LABOR AT OR AFTER 37 COMPLETED WEEKS OF GESTATION
== END 2018-12-11 05:45 | disposition home or self-care (01) ==
LOC: FBPOP 04:49
PROVIDERS: ATTEND Obstetrics & Gynecology
DX: O47.1 False labor at or after 37 completed weeks of gestation (principal); Z3A.37 37 weeks gestation of pregnancy
CPT/HCPCS: 59025; 84112; G0463; 99213

== ENCOUNTER 2018-12-12 17:17 | Inpatient (IN) | payer OTHER ==
[2018-12-12] MEDS ORDERED: TERBUTALINE 1 MG/ML VIAL SQ PRN (17:41)
[2018-12-12] MEDS ORDERED: CARBOPROST TROMETHAMINE 250 MCG/ML 1 ML AMP IM PRN (17:41)
[2018-12-12] MEDS ORDERED: LIDOCAINE 0.5% (PF) 5 MG/ML (50 ML SDV) SQ PRN (17:41)
[2018-12-12] MEDS ORDERED: METHYLERGONOVINE 0.2 MG/ML 1 ML AMP IM PRN (17:41)
[2018-12-12] MEDS ORDERED: OXYTOCIN 10 UNIT/ML 1 ML VIAL IM PRN (17:41)
[2018-12-12] MEDS ORDERED: LACTATED RINGERS 1,000 ML IV SCH ×2 (17:45)
[2018-12-12 18:02] LABS: Basophils % (A) 0 %; Eosinophils # (A) 0.3 k/uL (0-0.7); Eosinophils % (A) 1 %; HCT 37.7 % (34.0-46.0); HGB 12.4 gm/dL (11.4-16.0); Lymphocytes # (A) 2.1 k/uL (1.0-4.8); Lymphocytes % (A) 11 %; MCH 27.8 pg (25.0-35.0); MCHC 32.8 g/dL (31.0-37.0); MCV 84.7 fL (80.0-100.0); Mean Platelet Volume 7.6; Monocytes # (A) 0.6 k/uL (0-1.0); Monocytes % (A) 3 %; Neutrophils # (A) 16.7 k/uL (1.3-7.7); Neutrophils % (A) 84 %; Platelet Count 311 k/uL (150-450); RBC 4.45 m/uL (3.80-5.40); RDW 14.5 % (11.5-15.5); WBC 19.9 k/uL (3.8-10.6)
[2018-12-12] MEDS ORDERED: ROPIVACAINE 5MG/ML 20ML VIAL ONE (18:10)
[2018-12-12] MEDS ORDERED: fentaNYL (PF) 50 MCG/ML 5 ML AMP ONE (18:10)
[2018-12-12] MEDS ORDERED: SODIUM CHLORIDE 0.9% 100 ML BAG ONE (18:10)
--- NOTE | 2018-12-12 18:46 | P.HPOB ---
History of Present Illness H&P Date: 12/12/18 Chief Complaint: labor 28 year old presents at 37 weeks 4 days in labor. HEr cervix is 4/100/-2. She is rubin every 2-4 minutes. heart tones 120 with moderate variability and accelerations. Review of Systems All systems: negative Constitutional: Denies chills, Denies fever Eyes: denies blurred vision, denies pain Ears, nose, mouth and throat: Denies headache, Denies sore throat Cardiovascular: Denies chest pain, Denies shortness of breath Respiratory: Denies cough Gastrointestinal: Denies abdominal pain, Denies diarrhea, Denies nausea, Denies vomiting Genitourinary: Denies dysuria, Denies hematuria Musculoskeletal: Denies myalgias Integumentary: Denies pruritus, Denies rash Neurological: Denies numbness, Denies weakness Psychiatric: Denies anxiety, Denies depression Endocrine: Denies fatigue, Denies weight change Past Medical History Past Medical History: Fibromyalgia, Skin Disorder Additional Past Medical History / Comment(s): MENINGITIS , BOILS ON SKIN, CHEST PAIN AND SOB WITH ANXIETY, INTERMITTENT ABD PAIN, VARICOSE VEINS. Obstetric history: First was a vaginal delivery 39 weeks this is her second . She's had care with Dr. Mobley since 7 weeks gestation. Blood type A-, antibodies negative, rubella indeterminate, hepatitis B negative, RPR nonreactive, HIV negative. She was diagnosed with Trichomonas and treated several times but was never cleared of the infection. She did have a appointment set up with infectious disease but has not made that appointment yet. GBS negative. History of Any Multi-Drug Resistant Organisms: None Reported Additional Past Surgical History / Comment(s): EGD & COLONOSCOPY Past Anesthesia/Blood Transfusion Reactions: No Reported Reaction Past Psychological History: Anxiety Smoking Status: Current every day smoker Medications and Allergies Home Medications Medication Instructions Recorded Confirmed Type No Known Home Medications 12/12/18 12/12/18 History Allergies Allergy/AdvReac Type Severity Reaction Status Date / Time Iodinated Contrast- Oral and Allergy Anaphylaxis Verified 12/12/18 17:40 IV Dye [Iodinated Contrast Media - IV Dye] Exam Osteopathic Statement: *. No significant issues noted on an osteopathic structural exam other than those noted in the History and Physical/Consult. Intake and Output 12/12/18 12/12/18 12/12/18 06:59 14:59 22:59 Other: Weight 111.13 kg - OBG Physical Exam Breast: both: normal (no masses) Abdomen: bowel sounds normal, no diffuse tenderness, no bruit present, no guarding noted, no hepatomegaly, no splenomegaly, no mass Vulva: both: normal Vagina: normal moisture, no discharge Cervix: no lesion, no discharge Uterus: normal size, normal contour Adnexa: both: normal Anus/Rectum: normal perianal skin, no rectal mass, no hemorrhoids, heme negative Results Result Diagrams: 12/12/18 17:54 Abnormal Lab Results - Last 24 Hours (Table) 12/12/18 Range/Units 17:54 WBC 19.9 H (3.8-10.6) k/uL Neutrophils # 16.7 H (1.3-7.7) k/uL Assessment and Plan (1) Normal labor Current Visit: Yes Status: Acute Code(s): O80 - ENCOUNTER FOR FULL-TERM UNCOMPLICATED DELIVERY; Z37.9 - OUTCOME OF DELIVERY, UNSPECIFIED SNOMED Code(s): 94467341 Plan: 1. Admit to family place 2. Expectant management 3. Anticipate normal vaginal delivery. 4. 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
[2018-12-12 19:49] VITALS: BMI 44.8
[2018-12-12] MEDS ORDERED: diphenhydrAMINE 50 MG CAP PO PRN (20:03)
[2018-12-12] MEDS ORDERED: SIMETHICONE 80 MG CHEWABLE PO PRN (20:03)
[2018-12-12] MEDS ORDERED: Rhogam IMMUNE GLOBULIN 1,500 UNIT/1 ML IM ONE (20:03)
[2018-12-12] MEDS ORDERED: ZOLPIDEM 5 MG TAB PO PRN (20:03)
[2018-12-12] MEDS ORDERED: LANOLIN CREAM 5 GM TUBE TOPICAL PRN (20:03)
[2018-12-12] MEDS ORDERED: diphenhydrAMINE 25 MG CAP PO PRN (20:03)
[2018-12-12] MEDS ORDERED: BENZOCAINE/MENTHOL SPRAY 1 GM/SPRAY AEROSOL TOPICAL PRN (20:03)
[2018-12-12] MEDS ORDERED: HYDROCORTISONE 2.5% RECTAL CREAM 30 GM TUBE RECTAL PRN (20:03)
[2018-12-12] MEDS ORDERED: WITCH HAZEL 1 EACH MED..PAD TOPICAL PRN (20:03)
[2018-12-12] MEDS ORDERED: diphenhydrAMINE 50 MG/ML 1 ML VIAL IVP PRN ×2 (20:03)
[2018-12-12] MEDS ORDERED: ACETAMINOPHEN TAB 325 MG TAB PO PRN (20:03)
--- NOTE | 2018-12-12 20:06 | P.PROBDLV ---
Vaginal Delivery Note - . Vaginal Delivery Note: 28 year old presents at 37 weeks 4 days in labor. HEr cervix is 4/100/-2. She is rubin every 2-4 minutes. heart tones 120 with moderate variability and accelerations. She is admitted to [facility] and given an epidural. When she was about 7 cm dilated amniotomy was performed at 190 and clear fluid noted. She was complete dilated 1943, she pushed and delivered a viable female over intact perineum under epidural anesthesia. Head delivered OA, anterior shoulder delivered gentle downward guidance. The posterior shoulder and rest of body. Nose and mouth bulb suctioned, cord clamped and cut, infant placed mother's abdomen. Apgars 9, 9, weight 5 lbs. 15 oz. Placenta delivered spontaneously, intact with three-vessel cord at 1950. Vagina, cervix, perineum were inspected. Bilateral labial tears were repaired with 3-0 Vicryl. Estimated blood loss 300 mL. Mother and baby in stable condition.
[2018-12-12] MEDS ORDERED: OXYTOCIN 20 UNITS/1000 ML NS 1,000 ML IV SCH (20:15)
[2018-12-12] MEDS: IBUPROFEN 600 MG TAB PO PRN (23:58)
--- NOTE | 2018-12-13 08:36 | P.PNOBGVD ---
Subjective - Subjective Principal diagnosis: day 1 Interval history: Sheela doing very well day 1. She's ablating and voiding, she is tolerating her diet. She did relate that she finished her antibiotics that she was taking for Trichomonas but they're monitoring the baby closely for now. She did end up having a vaginal delivery due to the fact that she finish her antibiotics. All questions were answered for her for today. Vital signs are stable and afebrile. Objective - Latest Vital Signs Latest vital signs: Vital Signs Temp Pulse Resp BP Pulse Ox 12/13/18 08:00 98.2 F 65 16 110/57 12/13/18 04:00 97.9 F 72 18 117/57 98 12/13/18 00:00 98.5 F 83 18 104/66 12/12/18 22:04 97.5 F L 85 18 112/60 12/12/18 21:34 97.4 F L 75 16 110/54 12/12/18 21:04 66 18 113/69 12/12/18 20:49 97.6 F 65 18 95/44 12/12/18 20:34 97.7 F 72 18 105/59 12/12/18 20:19 72 18 100/55 12/12/18 20:04 97.7 F 82 18 153/61 12/12/18 17:41 98.1 F 89 18 112/56 98 Intake and Output 12/12/18 12/13/18 12/13/18 22:59 06:59 14:59 Intake Total 1700 Output Total 600 Balance 1100 Intake: Intake, IV Titration 1700 Amount Lactated Ringers 1,000 ml 700 @ 999 mls/hr IV .Q1H1M MANFRED Rx#:[id number] Oxytocin 20 Units/1000 ml 1000 Ns 1,000 ml @ Per Protocol IV .Q0M MANFRED Rx#: [id number] Output: Estimated Blood Loss 600 Other: # Voids 1 1 Weight 111.13 kg - Exam Lungs: bilateral: normal Chest: Normal S1, Normal S2 Extremities: Present: normal Abdomen: Present: normal appearance, soft Uterus: Present: normal, firm - Labs Labs: Abnormal Lab Results - Last 24 Hours (Table) 12/12/18 Range/Units 17:54 WBC 19.9 H (3.8-10.6) k/uL Neutrophils # 16.7 H (1.3-7.7) k/uL
[2018-12-13] MEDS: SENNOSIDES-DOCUSATE SODIUM 1 EACH TAB PO SCH ×2 (09:47→23:57)
[2018-12-13] MEDS ORDERED: DIPH,PERTUS(ACELL)TETVAC-LF 0.5 ML VIAL IM ONE (18:07)
[2018-12-13] MEDS ORDERED: MEASLES-MUMPS-RUBELLA VACC/PF 12,500 UNIT/0.5 ML VIAL SQ ONE (18:08)
[2018-12-13] MEDS: IBUPROFEN 600 MG TAB PO PRN (18:36)
[2018-12-13 23:57] VITALS: RESP 16
--- NOTE | 2018-12-14 07:43 | P.DS ---
Providers Date of admission: 12/12/18 17:37 Expected date of discharge: 12/14/18 Attending physician: Royer Anders Primary care physician: Stated None Hospital Course: Overall Sheela is doing very well. She is ambulating, voiding and tolerating her diet. 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 All questions were answered for her and discharge instructions thoroughly reviewed. Prescription for a breast pump was provided. On physical exam vital signs are stable and afebrile. Heart regular, lungs clear, extremities without pain. Abdomen is soft and nontender with positive bowel sounds. Uterus is firm below the umbilicus. Assessment post day 2. Plan discharged home follow up me in 6 weeks. Patient Condition at Discharge: Good Plan - Discharge Summary New Discharge Prescriptions: No Action No Known Home Medications Discharge Medication List No Known Home Medications 12/12/18 [History] Follow up Appointment(s)/Referral(s): Royer Anders DO [Doctor of Osteopathic Medicine] - 6 Weeks Activity/Diet/Wound Care/Special Instructions: No heavy lifting, limit stairs and driving, and pelvic rest. If any high temperatures, heavy bleeding, or severe pain call the office Discharge Disposition: HOME SELF-CARE
[2018-12-14] MEDS: SENNOSIDES-DOCUSATE SODIUM 1 EACH TAB PO SCH ×2 (08:29→20:00)
[2018-12-14 16:29] VITALS: BP 99/52; PULSE 64; TEMP 98.4
[2018-12-14] MEDS: IBUPROFEN 600 MG TAB PO PRN (18:35)
== END 2018-12-14 19:45 | disposition home or self-care (01) | DRG 806 ==
LOC: FBPOP 17:17 → 4FBP 17:37
PROVIDERS: ADMIT Obstetrics & Gynecology; ATTEND Obstetrics & Gynecology
PROC: 10E0XZZ Delivery of Products of Conception, External Approach (ICD-10-PCS; principal; 2018-12-12)
PROC: 0HQ9XZZ Repair Perineum Skin, External Approach (ICD-10-PCS; 2018-12-12)
PROC: 00HU33Z Insertion of Infusion Device into Spinal Canal, Percutaneous Approach (ICD-10-PCS; 2018-12-12)
PROC: 3E0R3BZ Introduction of Anesthetic Agent into Spinal Canal, Percutaneous Approach (ICD-10-PCS; 2018-12-12)
DX: O99.334 Smoking (tobacco) complicating childbirth (principal); O98.82 Other maternal infectious and parasitic diseases complicating childbirth; Z37.0 Single live birth; O70.0 First degree perineal laceration during delivery; O99.344 Other mental disorders complicating childbirth; O87.4 Varicose veins of lower extremity in the puerperium; F17.200 Nicotine dependence, unspecified, uncomplicated; F41.9 Anxiety disorder, unspecified; O99.89 Other specified diseases and conditions complicating pregnancy, childbirth and the puerperium; M79.7 Fibromyalgia; Z3A.37 37 weeks gestation of pregnancy; Z86.61 Personal history of infections of the central nervous system; Z91.041 Radiographic dye allergy status
CPT/HCPCS: 85025; 86850; 86900; 86901; 88307; 90707; 90715

== ENCOUNTER → 2019-06-06 | Outpatient (CLI) | payer OTHER ==
[2019-06-06 17:57] LABS: Basophils % (A) 0 %; Eosinophils # (A) 0.3 k/uL (0-0.7); Eosinophils % (A) 2 %; HCT 41.8 % (34.0-46.0); HGB 13.5 gm/dL (11.4-16.0); Lymphocytes # (A) 2.2 k/uL (1.0-4.8); Lymphocytes % (A) 18 %; MCH 27.5 pg (25.0-35.0); MCHC 32.4 g/dL (31.0-37.0); MCV 84.8 fL (80.0-100.0); Mean Platelet Volume 7.3; Monocytes # (A) 0.5 k/uL (0-1.0); Monocytes % (A) 4 %; Neutrophils # (A) 9.1 k/uL (1.3-7.7); Neutrophils % (A) 74 %; Platelet Count 301 k/uL (150-450); RBC 4.92 m/uL (3.80-5.40); RDW 14.1 % (11.5-15.5); WBC 12.4 k/uL (3.8-10.6)
== END | disposition home or self-care (01) ==
LOC: LABPAT 17:00
PROVIDERS: ATTEND Obstetrics & Gynecology
DX: Z01.812 Encounter for preprocedural laboratory examination (principal)
CPT/HCPCS: 85025

== ENCOUNTER 2019-06-09 06:28 | Day surgery (SDC) | payer OTHER ==
[2019-06-03 18:32] VITALS: BMI 43.0
[~2019-06-09 06:28] MED LIST: DEXAMETHASONE SOD PHOSPHATE 10 MG/ML 1 ML VIAL IV ONE; HYDROmorphone 0.5 MG/0.5 ML SYRINGE IVP PRN; LACTATED RINGERS 1,000 ML IV SCH; LIDOCAINE 1% 20 ML VIAL (10MG/ML) FOR IV START INTRADERMA PRN; ONDANSETRON 4 MG/2 ML VIAL IVP ONE; Pre Op ABX Message 1 EACH MISC MISCELLANE ONE; SCOPOLAMINE 1.5MG/72HR PATCH TRANSDERM ONE
--- NOTE | 2019-06-09 07:39 | P.HPOB ---
History of Present Illness H&P Date: 06/09/19 Chief Complaint: Family planning Patient is a 29-year-old female who is completed her family planning and desires permanent sterilization. Risks/benefits/alternatives to laps scopic tubal occlusion with a prescription were explained to the patient in detail and all questions were answered for her prior to proceeding to the operative room. Risks did include but were not limited to bleeding/infection/damage to bladder/damage to bowel/vascular/nerve damage/anesthesia potential compilations/potential need further surgeries. She also is aware of a potential for per thousand risk of failure as well as this procedure being designed to be permanent. On physical exam vital signs are stable and afebrile. Heart regular, lungs clear, extremities without pain. Abdomen soft but obese. Bowel sounds are noted. Pelvic exam otherwise unremarkable. Assessment family planning/plan lap tubal with Filshie clips Past Medical History Past Medical History: Fibromyalgia, Skin Disorder Additional Past Medical History / Comment(s): Hx MENINGITIS INFANT; Hx CP, SOB WITH ANXIETY; VARICOSE VEINS. History of Any Multi-Drug Resistant Organisms: None Reported Additional Past Surgical History / Comment(s): EGD & COLONOSCOPY. Removal IUD. Past Anesthesia/Blood Transfusion Reactions: No Reported Reaction Smoking Status: Current every day smoker - Past Family History Mother Family Medical History: Hypertension Medications and Allergies Home Medications Medication Instructions Recorded Confirmed Type Ascorbic Acid [Vitamin C] 1,000 mg PO DAILY 06/03/19 06/09/19 History Cetirizine HCl [Zyrtec] 10 mg PO DAILY 06/03/19 06/09/19 History Cholecalciferol [Vitamin D3 (25 4,000 unit PO DAILY 06/03/19 06/09/19 History Mcg = 1000 Iu)] Escitalopram [Lexapro] 10 mg PO HS 06/03/19 06/09/19 History Ferrous Sulfate [Feosol] 325 mg PO DAILY 06/03/19 06/09/19 History buPROPion HCL [Wellbutrin Sr] 200 mg PO HS 06/03/19 06/09/19 History Allergies Allergy/AdvReac Type Severity Reaction Status Date / Time Iodinated Contrast Media Allergy Anaphylaxis Verified 06/09/19 06:54 [Iodinated Contrast Media - IV Dye] Exam Osteopathic Statement: *. No significant issues noted on an osteopathic structural exam other than those noted in the History and Physical/Consult. Vital Signs Temp Pulse Resp BP Pulse Ox 06/09/19 06:53 97.3 F L 76 18 131/76 97 Intake and Output 06/08/19 06/09/19 06/09/19 22:59 06:59 14:59 Other: Weight 107.6 kg - OBG Physical Exam Breast: both: normal (no masses) Abdomen: bowel sounds normal, no diffuse tenderness, no bruit present, no guar ding noted, no hepatomegaly, no splenomegaly, no mass Vulva: both: normal Vagina: normal moisture, no discharge Cervix: no lesion, no discharge Uterus: normal size, normal contour Adnexa: both: normal Anus/Rectum: normal perianal skin, no rectal mass, no hemorrhoids, heme negative
[2019-06-09] MEDS ORDERED: ROCURONIUM BROMIDE 10 MG/ML 10 ML VIAL IV ONE (07:50)
[2019-06-09] MEDS ORDERED: NEOSTIGMINE 1 MG/ML 10 ML VIAL ONE (07:50)
[2019-06-09] MEDS ORDERED: SUCCINYLCHOLINE CHLORIDE 100 MG/5 ML SYR IV ONE (07:50)
[2019-06-09] MEDS ORDERED: GLYCOPYRROLATE 0.2 MG/ML 2 ML VIAL ONE (07:50)
[2019-06-09] MEDS ORDERED: HYDROmorphone (PF) 1 MG/ML ONE (07:50)
[2019-06-09] MEDS ORDERED: LIDOCAINE 1% INJ 10MG/ML (20 ML MDV) ONE (07:50)
[2019-06-09] MEDS ORDERED: KETOROLAC 30 MG/ML 1 ML VIAL ONE (07:50)
[2019-06-09] MEDS ORDERED: PROPOFOL 10 MG/ML 20 ML VIAL IV ONE (07:50)
[2019-06-09] MEDS ORDERED: MIDAZOLAM 2 MG/2 ML VIAL ONE (07:50)
[2019-06-09] MEDS ORDERED: fentaNYL (PF) 50 MCG/ML 2 ML AMP ONE (07:50)
[2019-06-09] MEDS ORDERED: BUPIVACAIN-EPI 0.25%-1:200,000 30 ML VIAL SQ ONE ×2 (08:15→08:21)
--- NOTE | 2019-06-09 08:30 | P.OP ---
Date of Procedure: 06/09/19 Preoperative Diagnosis: Family planning Postoperative Diagnosis: Same Procedure(s) Performed: Laparoscopic tubal ligation with Filshie clips Anesthesia: ARY Surgeon: Royer Anders Estimated Blood Loss (ml): 5 IV fluids (ml): 300 Urine output (ml): 25 Pathology: none sent Condition: stable Disposition: same day Operative Findings: Normal female pelvic anatomy Description of Procedure: Sheela was taken to the operating suite where general anesthetic was found be adequate. She was prepped and draped in the normal sterile fashion and placed in the dorsal lithotomy position. Initially a speculum was inserted into the vagina and the anterior lip of the cervix was identified and grasped with a tenaculum. Uterus was then sounded to 9 cm and a kroner manipulator was inserted without difficulty. Other incidents were then removed and a red rubber catheter was used to drain the bladder of urine. Once this was completed gloves were changed catheter was removed and attention was turned to the abdominal portion of the procedure. Approximately 2 mL of quarter percent Marcaine was injected periumbilically and through this injected anesthetic a 5 mm skin incision was made. Through this incision, under direct visualization with an optical trocar and sleeve, the camera was inserted. Once peritoneal placement was assured gas was allowed to fully insufflate the abdomen and patient was then placed in steep Trendelenburg position. Second 8 mm skin incision was then then made near the midline slightly left of midline due to a healing abscess on her abdomen. Through the incision an 8 mm trocar and sleeve were inserted and once this was completed uterus was elevated and fallopian tubes were identified. First the right fallopian tube had a Filshie clip applied and the left fallopian tube. No bleeding is noted in the mesosalpinx and no other gross abnormalities are seen. All instruments were then removed and gas was allowed to expel from the abdomen. 5 deep breaths were provided during this process. Once completed and all instrument was removed, 4-0 Vicryl was used to close incisions subcuticularly and the remaining 8 mL of quarter percent Marcaine was injected around the incisions. Sponge, lap, needle counts were all correct 2. Patient was then taken to the recovery room in stable and satisfactory condition. Plan - Discharge Summary Discharge Rx Participant: No New Discharge Prescriptions: New Ibuprofen [Motrin] 600 mg PO Q6HR PRN #30 tab PRN Reason: Pain HYDROcodone/APAP 5-325MG [[place] 5-325] 1 tab PO Q4HR PRN #30 tab PRN Reason: Pain No Action Cholecalciferol [Vitamin D3 (25 Mcg = 1000 Iu)] 4,000 unit PO DAILY buPROPion HCL [Wellbutrin Sr] 200 mg PO HS Ferrous Sulfate [Feosol] 325 mg PO DAILY Escitalopram [Lexapro] 10 mg PO HS Cetirizine HCl [Zyrtec] 10 mg PO DAILY Ascorbic Acid [Vitamin C] 1,000 mg PO DAILY Discharge Medication List Ascorbic Acid [Vitamin C] 1,000 mg PO DAILY 06/03/19 [History] Cetirizine HCl [Zyrtec] 10 mg PO DAILY 06/03/19 [History] Cholecalciferol [Vitamin D3 (25 Mcg = 1000 Iu)] 4,000 unit PO DAILY 06/03/19 [History] Escitalopram [Lexapro] 10 mg PO HS 06/03/19 [History] Ferrous Sulfate [Feosol] 325 mg PO DAILY 06/03/19 [History] buPROPion HCL [Wellbutrin Sr] 200 mg PO HS 06/03/19 [History] HYDROcodone/APAP 5-325MG [[place] 5-325] 1 tab PO Q4HR PRN #30 tab 06/09/19 [Rx] Ibuprofen [Motrin] 600 mg PO Q6HR PRN #30 tab 06/09/19 [Rx] Follow up Appointment(s)/Referral(s): Royer Anders DO [Doctor of Osteopathic Medicine] - 2 Weeks Activity/Diet/Wound Care/Special Instructions: No heavy lifting, limit stairs and driving, and pelvic rest. If any high temperatures, heavy bleeding, or severe pain call my office Discharge Disposition: HOME SELF-CARE
[2019-06-09 08:48] VITALS: TEMP 98
[2019-06-09 09:10] VITALS: RESP 16
[2019-06-09 09:26] VITALS: BP 130/74; PULSE 82
== END 2019-06-09 09:39 | disposition home or self-care (01) ==
LOC: OR 06:28
PROVIDERS: ATTEND Obstetrics & Gynecology
DX: Z30.2 Encounter for sterilization (principal); F17.210 Nicotine dependence, cigarettes, uncomplicated; M79.7 Fibromyalgia; F41.9 Anxiety disorder, unspecified; I83.90 Asymptomatic varicose veins of unspecified lower extremity; E66.01 Morbid (severe) obesity due to excess calories; Z98.890 Other specified postprocedural states; Z79.899 Other long term (current) drug therapy; Z91.041 Radiographic dye allergy status; Z86.61 Personal history of infections of the central nervous system; Z82.49 Family history of ischemic heart disease and other diseases of the circulatory system; Z80.9 Family history of malignant neoplasm, unspecified; Z83.3 Family history of diabetes mellitus; Z68.41 Body mass index [BMI] 40.0-44.9, adult
CPT/HCPCS: 81025; 58671; J2250; J1100; J2710; J2405; J2001; J3010; J1885; J1170; J0330; J2704

== ENCOUNTER → 2020-04-23 | Outpatient (CLI) | payer OTHER ==
--- NOTE | 2020-04-24 07:22 | MR ---
EXAMINATION TYPE: MR shoulder RT wo con DATE OF EXAM: 04/23/2020 COMPARISON: None HISTORY: RT shoulder pain TECHNIQUE: Multiplanar, multisequence imaging of the right shoulder is performed without contrast. FINDINGS: Rotator Cuff: Rotator cuff appears intact. No suspicious changes to suggest perforation or complete t ear is evident. No tendon or muscle retraction is evident. Acromioclavicular Joint: Within normal limits Glenohumeral Joint: Humeral head articulates with the glenoid. Labrum: There is increased linear signal within the superior glenoid labrum. Correlate for a superior labral tear. Biceps Tendon: The long head of biceps is in normal location within bicipital groove. Bone marrow signal: No focal abnormal marrow signal is appreciated. Other: No additional significant abnormality is appreciated. IMPRESSION: 1. There is signal abnormality within the superior glenoid labrum. Correlate for superior glenoid lab ral tear. 2. Rotator cuff tendons appear intact.
== END | disposition home or self-care (01) ==
LOC: RADMRIMAIN 11:19
PROVIDERS: ATTEND Orthopaedic Surgery
DX: M25.511 Pain in right shoulder (principal)

== ENCOUNTER → 2020-06-13 | Outpatient (CLI) | payer OTHER ==
[2020-06-13 09:46] LABS: Basophils # (A) 0.1 k/uL (0-0.2); Basophils % (A) 1 %; Eosinophils # (A) 0.6 k/uL (0-0.7); Eosinophils % (A) 4 %; HCT 43.9 % (34.0-46.0); HGB 14.5 gm/dL (11.4-16.0); Lymphocytes # (A) 3.7 k/uL (1.0-4.8); Lymphocytes % (A) 23 %; MCH 27.7 pg (25.0-35.0); MCV 83.8 fL (80.0-100.0); Mean Platelet Volume 7.6; Monocytes # (A) 0.7 k/uL (0-1.0); Monocytes % (A) 5 %; Neutrophils # (A) 10.8 k/uL (1.3-7.7); Neutrophils % (A) 67 %; Platelet Count 317 k/uL (150-450); RBC 5.24 m/uL (3.80-5.40); RDW 13.6 % (11.5-15.5); WBC 16.1 k/uL (3.8-10.6)
[2020-06-13 10:01] LABS: Potassium 3.8 mmol/L (3.5-5.1)
== END | disposition home or self-care (01) ==
LOC: LABPAT 09:11
PROVIDERS: ATTEND Orthopaedic Surgery
DX: M75.41 Impingement syndrome of right shoulder (principal)
CPT/HCPCS: 36415; 80051; 85025

== ENCOUNTER 2020-06-21 06:13 | Day surgery (SDC) | payer OTHER ==
[2020-06-15 18:11] VITALS: BMI 42.0
--- NOTE | 2020-06-20 14:21 | HP ---
HISTORY AND PHYSICAL Surgery is 06/21/2020. Sheela Fisher is a 30-year-old patient seen with progressive right shoulder pain. We discussed options for treatment. She elected to proceed with arthroscopy. Consent was obtained. PAST MEDICAL HISTORY: Anxiety. PAST SURGICAL HISTORY: Tubal ligation. DAILY MEDICATIONS: Ibuprofen. ALLERGIES: Allergies are IV CONTRAST DYE. SOCIAL HISTORY: She smokes half a pack of cigarettes daily. PHYSICAL EVALUATION OF THE RIGHT SHOULDER: Flexion 150, abduction 140, external rotation is 60 with pain and weakness. Tenderness along the anterolateral acromion and rotator cuff insertion site. Impingement positive at 90. Drop-arm sign positive. Distal neurovascular exam intact. Radiographs right shoulder type 2 acromion. MRI right shoulder revealed labral tear. IMPRESSION: 1. Right shoulder impingement with labral tear. 2. Tobacco use. PLAN: Right shoulder arthroscopy, subacromial decompression and labral repair versus debridement. MMODL / IJN: [id number] /
[2020-06-21] MEDS ORDERED: LIDOCAINE 1% (10MG/ML) FOR IV START INTRADERMA PRN (06:30)
[2020-06-21] MEDS ORDERED: ONDANSETRON 4 MG/2 ML VIAL IVP ONE ×2 (06:30→10:18)
[2020-06-21] MEDS ORDERED: SCOPOLAMINE 1.5MG/72HR PATCH TRANSDERM ONE (06:30)
[2020-06-21] MEDS ORDERED: DEXAMETHASONE SOD PHOSPHATE 4 MG/ML 1 ML VIAL IV ONE (06:30)
[2020-06-21] MEDS ORDERED: LACTATED RINGERS 1,000 ML IV SCH (06:30)
[2020-06-21] MEDS ORDERED: HYDROmorphone 0.5 MG/0.5 ML SYRINGE IVP PRN (07:00)
[2020-06-21] MEDS ORDERED: fentaNYL (PF) 50 MCG/ML 2 ML AMP IV ONE ×2 (07:31→07:51)
[2020-06-21] MEDS ORDERED: MIDAZOLAM 2 MG/2 ML VIAL IV ONE ×2 (07:31→07:51)
[2020-06-21] MEDS ORDERED: SUCCINYLCHOLINE CHLORIDE 100 MG/5 ML SYR IV ONE (08:43)
[2020-06-21] MEDS ORDERED: LIDOCAINE 1% INJ 10MG/ML (20 ML MDV) ONE (08:43)
[2020-06-21] MEDS ORDERED: PROPOFOL 10 MG/ML 20 ML VIAL IV ONE (08:43)
[2020-06-21] MEDS ORDERED: ROPIVACAINE 5 MG/ML 30 ML VIAL ONE (08:43)
[2020-06-21] MEDS ORDERED: fentaNYL (PF) 50 MCG/ML 2 ML AMP ONE (08:43)
[2020-06-21] MEDS ORDERED: LACTATED RINGERS 1,000 ML IV ONE (09:30)
--- NOTE | 2020-06-21 09:42 | P.ANPRN ---
Procedure Note - Anesthesia - Nerve Block Performed Right Interscalene Single Time Out Performed: Yes (751) Date of Procedure: 06/21/20 Procedure Start Time: 07:52 Procedure Stop Time: 07:59 Location of Patient: PreOp Indication: Acute Post-Operative Pain, Requested by Surgeon Specifically requested for management of pain by DrLove: Juan Alejandro Sedation Type: Sedate with meaningful contact maintained Preparation: Sterile Prep Position: Supine Catheter: Indwelling Needle Types: Pajunk Needle Gauge: 18, 21 Ultrasound used to visualize needle placement: Yes Ultrasound used to observe medication spread: Yes Injectate: 0.5% Ropivacaine (see comment for volume) (30cc) Blood Aspirated: No Pain Paresthesia on Injection Noted: No Resistance on Injection: Normal Image Stored and Saved: Yes Events: Uneventful and Well Tolerated
[2020-06-21 10:24] VITALS: TEMP 97.7
--- NOTE | 2020-06-21 10:24 | P.OP ---
Date of Procedure: 06/21/20 Preoperative Diagnosis: Right shoulder impingement Postoperative Diagnosis: 1. Right shoulder labral tear 2. Right shoulder impingement Procedure(s) Performed: 1. Right shoulder arthroscopic labral repair 2. Right shoulder arthroscopic subacromial decompression Implants: 2Arthrex push lock anchors Anesthesia: GETA, regional (Interscalene block) Surgeon: Juan Alejandro Client Account Assistant #1: Chinmay Miranda Estimated Blood Loss (ml): 11 Pathology: none sent Disposition: PACU Indications for Procedure: 30-year-old patient seen with progressive right shoulder pain. After treatment options were discussed, she elected to proceed with arthroscopy. Operative Findings: See description of procedure Description of Procedure: Patient underwent an interscalene block by department of anesthesia. The patient was then taken to the operative suite. The patient underwent a general anesthetic by the department of anesthesia. The patient was placed into a lateral position and secured. There was appropriate padding of the bony prominence. Right shoulder was then prepped and draped in normal sterile orthopedic fashion. We placed the extremity in 10 pounds of longitudinal traction. A posterior incision was now made for a posterior working portal site. The trocar and cannula were inserted into the glenohumeral joint. Arthroscopy was initiated. Spinal needle was now inserted anteriorly, to ascertain the anterior working portal site. An incision was now made in that area, a trocar was inserted followed by a probe. There was a labral tear from the 1:00 to 4 o'clock position. The posterior and inferior labrum were intact. There was some superficial fraying of the superior labrum. The biceps anchor was intact. There was no soaking chondromalacia. I now introduced a cannula through anterior portal site. I abraded the anterior glenoid with a motorized bur. I now passed 2 Arthrex fiber tape sutures through good bites of labral tissue anteriorly. With the assistance of Jefferson NEWMAN drilled 2 holes into my abraded footprint. I now repaired the labral tear utilizing 2 Arthrex push lock anchors. We had good repair of the labrum anteriorly. Residual suture limbs were clipped. The repair was probed and found to be stable. Instruments removed from glenohumeral joint. Utilizing the posterior working portal site, the trocar and cannula were inserted into the subacromial space. Arthroscopy initiated. I made an incision 2 fingerbreadths lateral to the acromion. I introduced my trocar followed by my ArthroCare ablator. I now began ablating thick subacromial bursal tissue, which exposed the undersurface of the anterior acromion. There was diminished subacromial space. There was a very prominent anterior acromion. A motorized bur was introduced and a subacromial decompression was performed. I noted good decompression of subacromial space. I now probed the rotator cuff tendon. There was some superficial fraying laterally along the distal supraspinatus area. I cleaned that up with a motorized shaver. I probed the area again and found no evidence for full-thickness rotator cuff tendon tear. I injected 1 mL Renyte intra-articular. Instruments now removed from the portal sites. All portal sites were approximated with nylon suture. Sterile dressings were applied followed by a shoulder sling. Chinmay NEWMAN assisted in this complex case. The patient was awakened, transferred to a bed, and taken to recovery in stable condition.
[2020-06-21] MEDS ORDERED: MEPERIDINE 50 MG/ML SYRINGE IVP ONE (10:39)
[2020-06-21 11:21] VITALS: RESP 16
[2020-06-21] MEDS ORDERED: HYDROcodone/APAP 7.5-325MG 1 EACH TAB ONE (11:22)
[2020-06-21] MEDS ORDERED: HYDROcodone/APAP 7.5-325MG 1 EACH TAB PO ONE (11:25)
[2020-06-21 11:42] VITALS: BP 117/74; PULSE 88
== END 2020-06-21 12:02 | disposition home or self-care (01) ==
LOC: OR 06:13
PROVIDERS: ATTEND Orthopaedic Surgery
DX: S43.431A Superior glenoid labrum lesion of right shoulder, initial encounter (principal); M75.41 Impingement syndrome of right shoulder; F41.9 Anxiety disorder, unspecified; F17.210 Nicotine dependence, cigarettes, uncomplicated; Z98.41 Cataract extraction status, right eye; Z91.041 Radiographic dye allergy status
CPT/HCPCS: 29807; 29826; 81025; 64416; 76942; C1713 ×2; Q4212; J2250; J1100; J2175; J0690; J2405; J2001; J3010; J2795; J0330; J2704; J1170; 64415

== ENCOUNTER → 2022-09-22 | Outpatient (CLI) | payer OTHER ==
--- NOTE | 2022-09-22 09:45 | MM ---
Reason for Exam: Clinical finding. Indicated Problems: Other indicated problem. Patient History: Menarche at age 10. First Full-Term at age 22. Maternal aunt had breast cancer. Paternal aunt had breast cancer. Last menstrual period: 09/04/2022 Tissue Density: The breast tissue is heterogeneously dense. This may lower the sensitivity of mammography. Findings: Analyzed By CAD. Benign-appearing right axillary lymph nodes are present. Single benign appearing calcification right breast is noted. No solid or cystic mass or abnormal fluid collection is seen. Overall Assessment: Benign, BI-RAD 2 Management: Screening Mammogram of both breasts at age 39. Electronically signed and approved by: Esau Bonds M.D.
--- NOTE | 2022-09-22 10:24 | USB ---
Reason for Exam: Clinical finding. Patient History: Menarche at age 10. First Full-Term at age 22. Maternal aunt had breast cancer. Paternal aunt had breast cancer. Technique: Method: Whole Breast Handheld. Findings: The whole breast of both breasts, the axilla of both breasts and the retroareolar of both breasts were scanned. A complete US of all four quadrants of the bilateral breasts and retro-areolar regions were reviewed. No solid or cystic masses are identified.. A benign 5 mm calcification near the nipple is identified on ultrasound which correlates with mammogram. A few prominent but subcentimeter right axillary lymph nodes are seen which correlates with recent mammogram. Overall Assessment: Benign, BI-RAD 2 Management: Screening Mammogram of both breasts at age 39. Managed clinically patient's symptoms of occasional bilateral breast yellow discharge with stimulation. Results were given to the patient verbally at the time of exam. Electronically signed and approved by: Esau Bonds M.D.
== END | disposition home or self-care (01) ==
LOC: RADMAMWWP 09:15
PROVIDERS: ATTEND Family Medicine
DX: N64.52 Nipple discharge (principal); L73.2 Hidradenitis suppurativa; Z80.3 Family history of malignant neoplasm of breast
CPT/HCPCS: 77066; 76641; G0279; 77062